=== PATIENT | male | born 1940 | race Caucasian/White ===

== ENCOUNTER 2021-04-25 11:52 | Inpatient (IN) | payer MEDICARE, OTHER ==
[~2021-04-25] VITALS: Ht 167.6 cm; Wt 111.0 kg
[~2021-04-25 11:52] MED LIST: AMLO10TA13 PO; ASPI-1265 PO; COU4T PO; ENOX40SY7 SQ; FURO40TA4 PO; LISI20TA28 PO; METO-477 PO; POTA-208 PO; PRAV40TA3 PO; PROP150T2 PO
[2021-04-25 12:52] LABS: ABG HCO3 31.8 mmol/L (22.0-26.0); ABG PO2 (T) 78.9 mmHg (75.0-100.0); ALLEN'S TEST POSITIVE; FCOHb 1.1 % (0.0-3.9); FLOW 1 L/min; FMetHb 0.2 % (0.0-1.5); FO2Hb 92.8 % (94-97); PATIENT TEMPERATURE 36.6; TOTAL HEMOGLOBIN 12.8 G/dl (14.0-18.0)
[2021-04-25 14:21] LABS: BASOPHILS % (AUTO) 0.5 % (0-1); EOSINOPHILS % (AUTO) 0.5 % (0-6); HEMATOCRIT 41.8 % (42.0-52.0); HEMOGLOBIN 13.5 g/dl (14.0-17.9); LYMPHOCYTES # (AUTO) 0.6 X10'3 (1.1-4.8); LYMPHOCYTES % (AUTO) 9.5 % (21-51); MEAN CORPUSCULAR HEMOGLOBIN 30.3 PG (27.0-31.0); MEAN CORPUSCULAR HGB CONC 32.4 g/dL (33.0-36.5); MEAN CORPUSCULAR VOLUME 93.7 FL (78-98); MEAN PLATELET VOLUME 7.8 FL (7.4-10.4); MONOCYTES # (AUTO) 0.7 X10'3 (0-0.9); MONOCYTES % (AUTO) 11.1 % (2-12); NEUTROPHILS # (AUTO) 5.1 X10'3 (1.8-7.7); NEUTROPHILS % (AUTO) 78.4 % (42-75); PLATELET COUNT 117 X10'3 (140-440); RED BLOOD COUNT 4.46 X10'6 (4.70-6.10); RED CELL DISTRIBUTION WIDTH 16.5 % (11.5-14.5); WHITE BLOOD COUNT 6.5 X10'3 (4.5-11.0)
[2021-04-25 14:46] LABS: ALANINE AMINOTRANSFERASE 21 U/L (12-78); ALBUMIN 3.2 G/DL (3.4-5.0); ALBUMIN/GLOBULIN RATIO 0.8 (1.1-1.5); ALKALINE PHOSPHATASE 102 IU/L (46-116); ANION GAP 4 (8-16); ASPARTATE AMINO TRANSFERASE 21 U/L (10-37); BILIRUBIN,TOTAL 1.5 MG/DL (0.1-1.0); BLOOD UREA NITROGEN 34 MG/DL (7-18); BUN/CREATININE RATIO 22.4 (5.4-32.0); CALCIUM 9.7 MG/DL (8.5-10.1); CHLORIDE 107 MMOL/L (99-107); CREATININE 1.52 MG/DL (0.60-1.10); GLUCOSE 88 MG/DL (70-104); POTASSIUM 4.3 MMOL/L (3.5-5.1); SODIUM 146 MMOL/L (135-145); TOTAL CARBON DIOXIDE 34.7 MMOL/L (24-32); TOTAL PROTEIN 7.2 G/DL (6.4-8.2); eGFR 44 ML/MIN
[2021-04-25 14:49] LABS: TROPONIN I 0.08 NG/ML (0.0-0.05)
[2021-04-25] MEDS ORDERED: LIDOcaine 2% 10ml TOPICAL JELLY (Urojet) MM ONE (16:10)
[2021-04-25 16:43] LABS: URINE AMPHETAMINE SCREEN NEGATIVE (Neg); URINE BARBITUATE SCREEN NEGATIVE (Neg); URINE BENZODIAZEPINES SCREEN NEGATIVE (Neg); URINE CANNABINOID SCREEN NEGATIVE (Neg); URINE COCAINE SCREEN NEGATIVE (Neg); URINE METHADONE SCREEN NEGATIVE (Neg); URINE OPIATE SCREEN NEGATIVE (Neg); URINE PHENCYCLIDINE SCREEN NEGATIVE (Neg)
[2021-04-25 17:20] LABS: CLARITY,URINE CLEAR (Clear); COLOR,URINE YELLOW (Yellow); GLUCOSE, URINE NEGATIVE (Neg); KETONES,URINE NEGATIVE (Neg); PROTEIN,URINE 30 mg/dl (Neg); UA COLLECTION TYPE OTHER
[2021-04-25 17:21] LABS: LEUKOCYTE ESTERASE ,URINE NEGATIVE (Neg); NITRITES, URINE NEGATIVE (Neg); OCCULT BLOOD,URINE MODERATE (Neg); UROBILINOGEN,URINE 0.2 E.U/dL (0.2-1.0)
[2021-04-25 17:24] LABS: BACTERIA,URINE NONE SEEN /HPF (Neg); WBC,URINE 0-4 /HPF (0-4)
[2021-04-25 17:25] LABS: SQUAMOUS EPITHELIAL CELL,UR FEW /LPF (FEW); TRANSITIONAL EPI CELLS,URINE FEW /HPF
[2021-04-25] MEDS ORDERED: morphine 2 MG/ML inj. syringe IV PRN (18:20)
[2021-04-25] MEDS ORDERED: ipratropium/albuterol 3ml nebule NEB PRN (18:20)
[2021-04-25] MEDS ORDERED: magnesium hydroxide 30ml (MOM) UD suspension PO PRN (18:20)
[2021-04-25] MEDS ORDERED: HYDROcodone/acetaminophen 10/325mg tab PO PRN (18:20)
[2021-04-25] MEDS ORDERED: magnesium 2GM in 50ml NS 50 ML IV PRN (18:20)
[2021-04-25] MEDS ORDERED: magnesium 4gm in 100ml NS 100 ML IV PRN (18:20)
[2021-04-25] MEDS ORDERED: acetaminophen 650mg rectal suppository RC PRN (18:20)
[2021-04-25] MEDS ORDERED: potassium Cl 20 mEq SR tablet PO PRN ×2 (18:20)
[2021-04-25] MEDS ORDERED: magnesium Cl slow-release 64mg tablet PO PRN (18:20)
[2021-04-25] MEDS ORDERED: PERFLUTREN PROTEIN-A MICROSPHR (Optison) 0.22 MG/ML 3ML VIAL IV ONE (18:20)
[2021-04-25] MEDS ORDERED: ondansetron/PF 4mg/2ml inj IV PRN (18:20)
[2021-04-25] MEDS ORDERED: acetaminophen 325mg tablet PO PRN ×2 (18:20)
[2021-04-25] MEDS ORDERED: HYDROcodone/acetaminophen 5mg/325mg tablet PO PRN (18:20)
[2021-04-25] MEDS ORDERED: normal saline 1000ml 1,000 ML IV SCH (18:20)
[2021-04-25] MEDS ORDERED: mag hydrox/Alum hydrox/simeth 30ml oral suspension PO PRN (18:20)
[2021-04-25] MEDS ORDERED: diphenhydrAMINE 25mg capsule PO PRN (18:20)
[2021-04-25] MEDS ORDERED: potassium Cl 40MEQ/1/2NS 520ml 520 ML IV PRN ×2 (18:20)
--- NOTE | 2021-04-25 18:48 | NUR ---
ASSUMED CARE OF PT. PT ALTERED SINCE LAST HR PER PRVIOUS NURSE. I RECIEVED A VERBAL ORDER FROM DR Carr FOR 2MG ATIVAN IM FOR PT. PT RIPPING LINES, TAKING HIS NC OFF, YELLING, CONFUSED TO HIS OWN AGE. DR VELÁZQUEZ WANTS PT ON BIPAP, PT UNABLE TO EVEN TOLERATE NC AT PRESENT. CALLED DR VELÁZQUEZ. DR VELÁZQUEZ AWARE.
[2021-04-25] MEDS ORDERED: LORazepam 2 mg/ml vial IM ONE (18:50)
[2021-04-25 18:57] LABS: HEMOGLOBIN A1C 5.5 % (4.5-6.2)
[2021-04-25] MEDS: ipratropium/albuterol 3ml nebule NEB SCH ×2 (19:00→23:50)
--- NOTE | 2021-04-25 19:10 | NUR ---
PT MEDICATED. TWO RN AT BEDSIDE HELPING PT GET SETTLED BACK ON BED AND EXPERIMENTAL ASSEMBLER.
[2021-04-25 19:27] LABS: ETHANOL < 0.010 GM/DL (0.0-0.010)
[2021-04-25] MEDS ORDERED: ATOR40TA71 PO (19:28)
[2021-04-25] MEDS ORDERED: POTA-205 PO (19:28)
[2021-04-25] MEDS: CefTRIAXone/D5W-Rocephin 1gm 50 ML IV SCH (19:51)
--- NOTE | 2021-04-25 19:52 | NUR ---
MALDONADO PLACED, NC O2 BEING GIVEN BY MOUTH RUNNING AT 2 LPM, NEW LINE PLACED ON RIGHT AC, PT ON OIL AGENT, LABS TAKES INCLUDING BLOOD CULTURES, ABX STARTED
[2021-04-25 19:59] LABS: ABG HCO3 32.6 mmol/L (22.0-26.0); ABG OXYGEN SATURATION 98.6 % (94-97); ABG PCO2 (T) 69.3 mmHg (35.0-48.0); FCOHb 1.3 % (0.0-3.9); FLOW 2 L/min; FMetHb 0.2 % (0.0-1.5); FO2Hb 97.1 % (94-97); PATIENT TEMPERATURE 36.6; TOTAL HEMOGLOBIN 12.5 G/dl (14.0-18.0)
[2021-04-25] MEDS: furosemide 10 MG/1 ML 10ml inj IV SCH (20:00)
--- NOTE | 2021-04-25 20:00 | NUR ---
PT RESTING COMFORTABLY. RT PAGED FOR BIPAP
[2021-04-25 20:03] LABS: URINE AMPHETAMINE SCREEN NEGATIVE (Neg); URINE BARBITUATE SCREEN NEGATIVE (Neg); URINE BENZODIAZEPINES SCREEN NEGATIVE (Neg); URINE CANNABINOID SCREEN NEGATIVE (Neg); URINE COCAINE SCREEN NEGATIVE (Neg); URINE METHADONE SCREEN NEGATIVE (Neg); URINE OPIATE SCREEN NEGATIVE (Neg); URINE PHENCYCLIDINE SCREEN NEGATIVE (Neg)
[2021-04-25 20:11] LABS: COLOR,URINE YELLOW (Yellow); UA COLLECTION TYPE FOLEY CATH
[2021-04-25 20:12] LABS: CLARITY,URINE SLIGHTLY CLOUDY (Clear); GLUCOSE, URINE NEGATIVE (Neg); KETONES,URINE NEGATIVE (Neg); LEUKOCYTE ESTERASE ,URINE NEGATIVE (Neg); NITRITES, URINE NEGATIVE (Neg); OCCULT BLOOD,URINE MODERATE (Neg); PROTEIN,URINE TRACE mg/dl (Neg); UROBILINOGEN,URINE 0.2 E.U/dL (0.2-1.0)
--- NOTE | 2021-04-25 20:15 | NUR ---
RT AT BEDSIDE TAKING NEW ABG AND SETTING BIPAP
[2021-04-25 20:21] LABS: SQUAMOUS EPITHELIAL CELL,UR FEW /LPF (FEW)
[2021-04-25 20:22] LABS: BACTERIA,URINE FEW /HPF (Neg); HYALINE CASTS 0-3 /LPF (NEGATIVE); MUCUS STRANDS FEW /LPF (Neg); RBC,URINE 20-50 /HPF (0-2)
[2021-04-25] MEDS: docusate sod 100mg capsule PO SCH (21:15)
--- NOTE | 2021-04-25 21:15 | NUR ---
RT AT BEDSIDE MODIFYING PT'S BIPAP SETTINGS AFTER I PAGED FOR DESATURATION
[2021-04-25] MEDS: K and/or MAG REPLACEMENT MC SCH (21:20)
[2021-04-25] MEDS: heparin, porcine 5000 units/ml vial SQ SCH (21:35)
[2021-04-25] MEDS ORDERED: PERFLUTREN PROTEIN-A MICROSPHR (Optison) 0.22 MG/ML 3ML VIAL IV PRN (21:45)
--- NOTE | 2021-04-25 23:38 | NUR ---
Kady melendrez in EDM - 04/25/21 at 2339 by [email or web address] 2014 RT AT BEDSIDE TAKING ABG AND PLACING PT ON BIPAP
--- NOTE | 2021-04-25 23:45 | NUR ---
TOOK NEW EKG D/T PT'S YEAST CULTURE DEVELOPER SHOWING WIDE COMPLEXES. DR JOHNSON REVIEWED EKG. NO NEW NSTEMI. ADVICED TO KEEP AN EYE OUT FOR PT'S MAGNESIUM GIVEN PT'S PROLONGED QTC
--- NOTE | 2021-04-26 | NUR ---
RT AT BEDSIDE GIVING PT NEB TREATMENT
--- NOTE | 2021-04-26 00:58 | NUR ---
PT RESTING COMFORTABLY, PT TOLERATING BIPAP WELL
--- NOTE | 2021-04-26 02:00 | NUR ---
PT TOOK BIPAP OUT AND STARTED RIPPING OUT LAB MANAGER LEADS OFF. HE ALSO ATTEMPTED TO REMOVE MALDONADO. TALKED TO PAYROLL CONSULTANT WHO PAGED FOR HOSPITALIST I REMAINED NEXT TO PT. PT PLACED ON SOFT RESTRAINTS WITH HELP OF TECH. PT TACHYCARDIC.
[2021-04-26] MEDS ORDERED: LORazepam 2 mg/ml vial IV ONE (02:05)
--- NOTE | 2021-04-26 02:20 | NUR ---
DR SANCHEZ CAME TO EVALUATE PT. I EXPLAINED MY CONCERN OF PT GOING TO INTO RHABDO HE WAS TRYING TO PULL OFF HIS SOFT RESTRAINTS IN AGITATION. I ALSO EXPLAINED THAT ALTHOUGH MEDICATIONS NEED TO BE GIVEN TO CALM PT DOWN, I AM CONCERNED OF PT'S PROLONGED QTC SEEN ON EKG TAKEN AT 2344 ON 04/25. DR SANCHEZ REVIEWED PT'S NEWEST EKG AND PUT IN ORDER FOR RT PAGE, NEW ABG'S, AND 1 MG OF ATIVAN TO BE GIVEN IV.
--- NOTE | 2021-04-26 02:37 | NUR ---
PT IS NOW MEDICATED. RT WAS AT BEDSIDE AND STARTED PT ON 1 LPM NC. O2 SATURATION AT 92%. ABG'S WERE ALSO TAKEN. BIPAP IS AT STANDBY IF NEEDED LATER ON TONIGHT. PT IS NOW SLEEPING COMFORTABLY. WILL MONITOR PT CAREFULLY. PT BACK ON CARDIAC LEADS.
[2021-04-26 02:38] LABS: ABG BASE EXCESS 8.2 mmol/L (-2.0-2.0); ABG HCO3 35.8 mmol/L (22.0-26.0); ABG OXYGEN SATURATION 91.6 % (94-97); ABG PCO2 (T) 62.4 mmHg (35.0-48.0); FCOHb 1.6 % (0.0-3.9); FLOW 1 L/min; FMetHb 0.1 % (0.0-1.5); PATIENT TEMPERATURE 36.7; TOTAL HEMOGLOBIN 13.7 G/dl (14.0-18.0)
--- NOTE | 2021-04-26 02:40 | NUR ---
RT BACK AT BEDSIDE WITH NEW ABG RESULTS. RESULTS SHOW IMPROVEMENT COMPARED TO FIRST ABG RESULTS; HOWEVER, RT CONCERNED THAT WITH ATIVAN MEDICATION, PT MAY BEGIN TO RETAIN CO2. RT WILL ATTEMPT TO PUT PT BACK ON BIPAP IF PT TOLERATES IT WELL NOW. RIGHT HAND SOFT RESTRAINT HAS BEEN TAKEN OFF
--- NOTE | 2021-04-26 02:45 | NUR ---
PT TOLERATING BIPAP WELL NOW AND SLEEPING COMFORTABLY. PT CONTINUES TO BE CAREFULLY MONITORED.
--- NOTE | 2021-04-26 03:00 | NUR ---
PT RESTING. MONITORING PT CAREFULLY
--- NOTE | 2021-04-26 03:18 | NUR ---
PT NO LONGER TOLERATING BIPAP. BIPAP ON STANDBY. WILL MONITOR PT'S BREATHING. Addendum: 04/26/21 at 0318 by [email or web address] PT TOOK BIPAP OFF. I PUT BIPAP ON STANDBY, WILL CONTINUE TO MONITOR PT'S BREATHING
--- NOTE | 2021-04-26 03:23 | NUR ---
PT PUT ON 1 LPM NC
[2021-04-26 03:37] LABS: BASOPHILS % (AUTO) 0.6 % (0-1); EOSINOPHILS # (AUTO) 0.1 X10'3 (0-0.9); HEMATOCRIT 37.2 % (42.0-52.0); HEMOGLOBIN 12.2 g/dl (14.0-17.9); LYMPHOCYTES # (AUTO) 0.6 X10'3 (1.1-4.8); LYMPHOCYTES % (AUTO) 11.5 % (21-51); MEAN CORPUSCULAR HEMOGLOBIN 30.6 PG (27.0-31.0); MEAN CORPUSCULAR HGB CONC 32.7 g/dL (33.0-36.5); MEAN CORPUSCULAR VOLUME 93.6 FL (78-98); MEAN PLATELET VOLUME 7.8 FL (7.4-10.4); MONOCYTES # (AUTO) 0.8 X10'3 (0-0.9); MONOCYTES % (AUTO) 13.8 % (2-12); NEUTROPHILS # (AUTO) 4.1 X10'3 (1.8-7.7); NEUTROPHILS % (AUTO) 73.1 % (42-75); PLATELET COUNT 105 X10'3 (140-440); RED BLOOD COUNT 3.98 X10'6 (4.70-6.10); RED CELL DISTRIBUTION WIDTH 16.4 % (11.5-14.5); WHITE BLOOD COUNT 5.6 X10'3 (4.5-11.0)
[2021-04-26 03:54] LABS: D-DIMER 2.41 MG/L FEU (0-0.50)
--- NOTE | 2021-04-26 03:59 | NUR ---
RT AT BEDSIDE TO GIVE PT BREATHING TX
[2021-04-26] MEDS: ipratropium/albuterol 3ml nebule NEB SCH ×2 (04:00→07:09)
--- NOTE | 2021-04-26 04:21 | NUR ---
PT SLEEPING COMFORTABLY WITH 1L NC, SATTING AT 92%, SECOND SOFT HAND RESTRAINT HAS BEEN TAKEN OFF.
--- NOTE | 2021-04-26 05:07 | NUR ---
Received report from RADHA Ibrahim. Awaiting arrival to the floor.
[2021-04-26 05:45] VITALS: BP 142/58
--- NOTE | 2021-04-26 05:45 | NUR ---
Patient arrived to the floor via gurney accompanied by ADMINISTRATIVE SERVICES OFFICER and EMT. Placed in room 3016A. Patient asleep on 1L NC, in no apparent distress. Call light in reach. Will continue to monitor.
[2021-04-26 06:00] VITALS: BP 95/50
--- NOTE | 2021-04-26 06:36 | NUR ---
Problems reprioritized. Patient report given, questions answered & plan of care reviewed with RADHA Emanuel.
[2021-04-26 07:51] LABS: ALANINE AMINOTRANSFERASE 16 U/L (12-78); ALBUMIN 2.6 G/DL (3.4-5.0); ALBUMIN/GLOBULIN RATIO 0.7 (1.1-1.5); ALKALINE PHOSPHATASE 81 IU/L (46-116); ANION GAP 0 (8-16); ASPARTATE AMINO TRANSFERASE 22 U/L (10-37); BILIRUBIN,TOTAL 1.1 MG/DL (0.1-1.0); BLOOD UREA NITROGEN 33 MG/DL (7-18); CALCIUM 8.7 MG/DL (8.5-10.1); CHLORIDE 111 MMOL/L (99-107); GLUCOSE 75 MG/DL (70-104); POTASSIUM 3.9 MMOL/L (3.5-5.1); SODIUM 150 MMOL/L (135-145); TOTAL CARBON DIOXIDE 38.9 MMOL/L (24-32); TOTAL PROTEIN 6.4 G/DL (6.4-8.2); eGFR 45 ML/MIN
[2021-04-26 07:56] LABS: C-REACTIVE PROTEIN 0.54 MG/DL (0.0-0.5); CHOL/HDL RATIO 2.7 (0.00-4.99); CHOLESTEROL 120 MG/DL (0-200); HDL CHOLESTEROL 44 MG/DL (35-60); LACTATE DEHYDROGENASE 219 U/L (85-227); LDL CHOLESTEROL 58 MG/DL (50-100); MAGNESIUM 2.6 MG/DL (1.5-2.4); PHOSPHORUS 4.5 MG/DL (2.3-4.5); TRIGLYCERIDES 88 MG/DL (20-135)
[2021-04-26] MEDS: K and/or MAG REPLACEMENT MC SCH ×2 (08:00→20:00)
[2021-04-26] MEDS: docusate sod 100mg capsule PO SCH ×2 (08:00→19:59)
[2021-04-26] MEDS: CefTRIAXone/D5W-Rocephin 1gm 50 ML IV SCH (08:14)
[2021-04-26] MEDS: azithromycin/NS 500mg/250ml 250 ML IV SCH (08:14)
[2021-04-26] MEDS: heparin, porcine 5000 units/ml vial SQ SCH ×2 (08:37→19:53)
[2021-04-26] MEDS: furosemide 10 MG/1 ML 10ml inj IV SCH ×2 (08:38→19:51)
[2021-04-26] MEDS ORDERED: ipratropium/albuterol 3ml nebule NEB PRN (08:45)
[2021-04-26] MEDS ORDERED: methylPREDNISolone sod succ 125mg/2ml vial IV ONE (09:05)
--- NOTE | 2021-04-26 10:00 | NUR ---
and son at the bedside with Dr. Carcamo and RN. and son state they would like to have the patient be DNR after having been fully educated
[2021-04-26 11:00] VITALS: BP 115/64
[2021-04-26 11:01] LABS: ABG BASE EXCESS 5.6 mmol/L (-2.0-2.0); ABG HCO3 33.4 mmol/L (22.0-26.0); ABG OXYGEN SATURATION 92.7 % (94-97); ABG PO2 (T) 62.8 mmHg (75.0-100.0); ALLEN'S TEST POSITIVE; FCOHb 1.2 % (0.0-3.9); FLOW 2 L/min; FMetHb 0.3 % (0.0-1.5); FO2Hb 91.3 % (94-97); PATIENT TEMPERATURE 35.7; TOTAL HEMOGLOBIN 13.7 G/dl (14.0-18.0)
--- NOTE | 2021-04-26 12:03 | NUR ---
PAGER ID: [phone] MESSAGE: [id number] Cecilia- Blood glucose 58. Patient NPO. Jenae 3048
--- NOTE | 2021-04-26 12:19 | NUR ---
PAGER ID: [phone] MESSAGE: [id number] Manuel Brooks- Blood glucose 53. No glucose orders. Jenae 2024
--- NOTE | 2021-04-26 12:58 | NUR ---
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 No wound care consult in EMR at this time. Per physical assessment pt A/O x 1 and confused, s/p BSS today with ST recs NPO as pt with poor swallow d/t cognitive level. Noted pt with two low blood sugars of 53 mg/dL and 57 mg/dL, currently not receiving any dextrose though RN has informed MD per hydrological technical officer. Recommend diet advancement to regular as medically indicated IF able to tolerate PO intake pending f/u BSS with ST given geriatric age, low blood sugars with A1c 5.5%, and lipid panel WNL. Will continue to follow and make recommendations as appropriate. Addendum: 04/26/21 at [address] Amended: Links added.
--- NOTE | 2021-04-26 14:14 | NUR ---
PAGER ID: [phone] MESSAGE: [id number]- positive blood culture. Continue Bipap? Jenae [id number]
[2021-04-26] MEDS: methylPREDNISolone sod succ 125mg/2ml vial IV SCH ×2 (14:40→20:00)
[2021-04-26] MEDS: LORazepam 2 mg/ml vial IV PRN (14:42)
[2021-04-26 15:00] VITALS: BP 125/60
[2021-04-26] MEDS ORDERED: dextrose 5%-water 1,000 ML IV SCH (15:30)
[2021-04-26] MEDS ORDERED: piperacillin/tazo 3.375gm/50ml 50 ML IV SCH (15:30)
--- NOTE | 2021-04-26 15:30 | NUR ---
PAGER ID: [phone] MESSAGE: [id number] Manuel Brooks- will not keep bipap on. Ativan was given. Jenae 1311
[2021-04-26] MEDS ORDERED: haloperidol lactate 5mg/ml inj IM PRN (15:35)
--- NOTE | 2021-04-26 15:35 | NUR ---
Dr. Carcamo called back and orders placed to give Haldol 5mg IM to see if he will keep bipap on and to have a sitter in the room when the family leaves. Regarding positive blood cultures Dr. Carcamo states to DC Rocephin. start Zosyn 3.375 and Vancomycin Regarding low blood glucose, order placed for D5W 50ml/hr and DC NS 20ml/hr
[2021-04-26] MEDS ORDERED: vancomycin/NS 1 GM ADD-VANTAGE 250 ML IV SCH (16:00)
[2021-04-26 18:00] VITALS: BP 125/60
--- NOTE | 2021-04-26 18:11 | NUR ---
Patient in room PCU 3016. I have received report from JEREMÍAS GARCIA and had the opportunity to ask questions and assume patient care.
--- NOTE | 2021-04-26 18:25 | NUR ---
Problems reprioritized. Patient report given, questions answered & plan of care reviewed with Laurie GARCIA.
[2021-04-26] MEDS: piperacillin/tazo 3.375gm/50ml 50 ML IV SCH ×2 (19:41→23:41)
[2021-04-26] MEDS ORDERED: warfarin 4mg tablet PO ONE (21:00)
[2021-04-26] MEDS: nystatin 15 GM powder TP SCH (21:51)
[2021-04-26 22:00] VITALS: BP 125/67
--- NOTE | 2021-04-26 22:52 | NUR ---
PAGER ID: [phone] MESSAGE: [id number] paz-patient needs coumadin dose tonight, INR 2.9-patient not able to swallow per Speech Eval-do we need lovenox?please call Laurie [phone]
[2021-04-26] MEDS ORDERED: enoxaparin 100mg/ml syringe SUBCUT ONE (23:00)
[2021-04-27] VITALS (13 sets, daily range): BP systolic 109–169; BP diastolic 25–105
[2021-04-27] MEDS: methylPREDNISolone sod succ 125mg/2ml vial IV SCH ×2 (01:25→08:08)
[2021-04-27] MEDS: LORazepam 2 mg/ml vial IV PRN ×4 (01:25→15:14)
--- NOTE | 2021-04-27 01:36 | NUR ---
promotional table spacer PAGER ID: [phone] MESSAGE: [id number]-please call back for Manuel Brooks-also in afib rvr now 130's to 150's, Laurie Solomon25
[2021-04-27] MEDS ORDERED: diltiazem-NS 100mg/100ml 100 ML IV SCH (01:45)
--- NOTE | 2021-04-27 01:49 | NUR ---
3016A-FIFI BELTRAN-HR IN 'S, CONVERTED TO SR-DO YOU STILL WANT ME TO START CARDIZEM? TRISH, ARTI
[2021-04-27 02:11] LABS: ABG BASE EXCESS 8.7 mmol/L (-2.0-2.0); ABG HCO3 34.8 mmol/L (22.0-26.0); ABG OXYGEN SATURATION 94.5 % (94-97); ABG PCO2 (T) 54.7 mmHg (35.0-48.0); ABG PO2 (T) 72.4 mmHg (75.0-100.0); ALLEN'S TEST POSITIVE; FCOHb 1.5 % (0.0-3.9); FO2Hb 93.1 % (94-97); PATIENT TEMPERATURE 37.2; RESPIRATORY RATE 8 b/min; TOTAL HEMOGLOBIN 12.9 G/dl (14.0-18.0)
--- NOTE | 2021-04-27 03:16 | NUR ---
PAGER ID: [phone] MESSAGE: NEED LOPRESSOR IV ON DEVIN FIFI0-HR IN 180/190'S-CAN;T CALL RAPID...ICU IN CODE . ARTI 2551
--- NOTE | 2021-04-27 03:16 | NUR ---
OLIVA SCALES STARTED, CALLED CHARGE AIR POLLUTION INSPECTOR, SUGGESTED LOPRESSOR IV, PAGED MAGU FOR FURTHER ORDERS. PATIENT IN RAPID AFIB RVR, HR IN 180'S/190'S,
[2021-04-27] MEDS ORDERED: metoprolol tartrate 1mg/ml inj IV ONE (03:20)
--- NOTE | 2021-04-27 03:39 | NUR ---
PATIENT RESUMEDRAPID AFIB, 180S AND 190'S, STARTED CARDIZEM GTT, PUSHED 10 MG IV METOPROLOL BLOOD PRESSURE 160/105- PATIENT NOW IN SR, 90'S, BP IS 122/71-MSP 83.
--- NOTE | 2021-04-27 06:11 | NUR ---
Problems reprioritized. Patient report given, questions answered & plan of care reviewed with JEREMÍAS GARCIA.
[2021-04-27 07:31] LABS: BASOPHILS % (AUTO) 0.1 % (0-1); EOSINOPHILS % (AUTO) 0 % (0-6); HEMATOCRIT 38.1 % (42.0-52.0); HEMOGLOBIN 12.5 g/dl (14.0-17.9); LYMPHOCYTES # (AUTO) 0.3 X10'3 (1.1-4.8); LYMPHOCYTES % (AUTO) 5.1 % (21-51); MEAN CORPUSCULAR HEMOGLOBIN 30.6 PG (27.0-31.0); MEAN CORPUSCULAR HGB CONC 32.8 g/dL (33.0-36.5); MEAN CORPUSCULAR VOLUME 93.3 FL (78-98); MEAN PLATELET VOLUME 8.1 FL (7.4-10.4); MONOCYTES # (AUTO) 0.1 X10'3 (0-0.9); MONOCYTES % (AUTO) 1.8 % (2-12); NEUTROPHILS # (AUTO) 5.3 X10'3 (1.8-7.7); PLATELET COUNT 113 X10'3 (140-440); RED BLOOD COUNT 4.09 X10'6 (4.70-6.10); RED CELL DISTRIBUTION WIDTH 16.2 % (11.5-14.5); WHITE BLOOD COUNT 5.7 X10'3 (4.5-11.0)
[2021-04-27 07:43] LABS: D-DIMER 1.22 MG/L FEU (0-0.50)
[2021-04-27 07:51] LABS: ALANINE AMINOTRANSFERASE 18 U/L (12-78); ALBUMIN 2.7 G/DL (3.4-5.0); ALBUMIN/GLOBULIN RATIO 0.7 (1.1-1.5); ALKALINE PHOSPHATASE 83 IU/L (46-116); ANION GAP 6 (8-16); ASPARTATE AMINO TRANSFERASE 25 U/L (10-37); BILIRUBIN,TOTAL 0.8 MG/DL (0.1-1.0); BLOOD UREA NITROGEN 45 MG/DL (7-18); BUN/CREATININE RATIO 23.3 (5.4-32.0); C-REACTIVE PROTEIN 0.84 MG/DL (0.0-0.5); CALCIUM 9.2 MG/DL (8.5-10.1); CHLORIDE 110 MMOL/L (99-107); CREATININE 1.93 MG/DL (0.60-1.10); GLUCOSE 102 MG/DL (70-104); LACTATE DEHYDROGENASE 224 U/L (85-227); MAGNESIUM 2.7 MG/DL (1.5-2.4); PHOSPHORUS 4.3 MG/DL (2.3-4.5); POTASSIUM 4.2 MMOL/L (3.5-5.1); SODIUM 149 MMOL/L (135-145); TOTAL CARBON DIOXIDE 32.7 MMOL/L (24-32); TOTAL PROTEIN 6.4 G/DL (6.4-8.2); eGFR 34 ML/MIN
[2021-04-27] MEDS: nystatin 15 GM powder TP SCH ×3 (08:00→21:39)
[2021-04-27] MEDS: docusate sod 100mg capsule PO SCH (08:00)
[2021-04-27] MEDS ORDERED: atorvastatin 20mg tablet PO SCH (08:00)
[2021-04-27] MEDS ORDERED: metoprolol tartrate 50mg tablet PO SCH (08:00)
[2021-04-27] MEDS ORDERED: lisinopril 20mg tablet PO SCH (08:00)
[2021-04-27] MEDS ORDERED: aspirin 81mg tab.chew PO SCH (08:00)
--- NOTE | 2021-04-27 08:03 | NUR ---
Critical lab paged to Dr. Carcamo PAGER ID: [phone] MESSAGE: [id number] Synder- PT 41.9 / INR 4.3. Jenae 3144
[2021-04-27] MEDS: azithromycin/NS 500mg/250ml 250 ML IV SCH (08:08)
[2021-04-27] MEDS: piperacillin/tazo 3.375gm/50ml 50 ML IV SCH (08:08)
[2021-04-27] MEDS: furosemide 10 MG/1 ML 10ml inj IV SCH (08:08)
[2021-04-27] MEDS: morphine 2 MG/ML inj. syringe IV PRN ×3 (13:36→23:32)
[2021-04-27] MEDS ORDERED: morphine 10mg/0.5ml (conc. morphine) oral syringe PO PRN (13:50)
[2021-04-27] MEDS ORDERED: morphine 2 MG/ML inj. syringe IV PRN (13:50)
[2021-04-27] MEDS ORDERED: vancomycin inj. 750 MG in normal saline 250ml IV soln 250 ML IV SCH (16:00)
--- NOTE | 2021-04-27 18:19 | NUR ---
Problems reprioritized. Patient report given, questions answered & plan of care reviewed with Sarah GARCIA.
--- NOTE | 2021-04-28 01:52 | NUR ---
reviewed and edited SRN assessment.
[2021-04-28] MEDS: morphine 2 MG/ML inj. syringe IV PRN ×2 (03:23→08:43)
[2021-04-28] MEDS: LORazepam 2 mg/ml vial IV PRN ×4 (04:25→21:25)
[2021-04-28 06:00] VITALS: BP 137/72
--- NOTE | 2021-04-28 06:38 | NUR ---
Problems reprioritized. Patient report given, questions answered & plan of care reviewed with
--- NOTE | 2021-04-28 07:23 | NUR ---
Patient in room PCU 3020. I have received report from RADHA SHAH and had the opportunity to ask questions and assume patient care.
[2021-04-28] MEDS: nystatin 15 GM powder TP SCH ×3 (08:48→21:10)
[2021-04-28] MEDS: morphine 2 MG/ML inj. syringe IV SCH ×2 (16:23→20:00)
[2021-04-28 18:00] VITALS: BP 108/69
--- NOTE | 2021-04-28 18:29 | NUR ---
TOOK IV OUT DUE TO BLEEDING Addendum: 04/28/21 at 1829 by Halima Hobbs RN Amended: Links added.
--- NOTE | 2021-04-28 18:30 | NUR ---
I RECIEVED REPORT AND HAVE ASSUMED CARE OF THE PATIENT. PATIENT IS RESTING IN BED WITH FAMILY AT BEDSIDE.
--- NOTE | 2021-04-28 18:59 | NUR ---
Problems reprioritized. Patient report given, questions answered & plan of care reviewed with RADHA PETERSEN.
[2021-04-29] MEDS: morphine 2 MG/ML inj. syringe IV PRN ×4 (00:36→11:18)
[2021-04-29] MEDS: LORazepam 2 mg/ml vial IV PRN ×4 (01:46→09:06)
[2021-04-29 07:00] VITALS: BP 90/54
--- NOTE | 2021-04-29 07:04 | NUR ---
Patient in room PCU 3020. I have received report from Florinda GARCIA and had the opportunity to ask questions and assume patient care.
[2021-04-29] MEDS: morphine 2 MG/ML inj. syringe IV SCH (07:48)
[2021-04-29] MEDS: nystatin 15 GM powder TP SCH ×2 (08:00→13:00)
[2021-04-29] MEDS ORDERED: morphine 2 MG/ML inj. syringe IV SCH (14:00)
--- NOTE | 2021-04-29 14:34 | NUR ---
Pt went asystole at 1345, family was at bedside, made aware, donor netqwork called, [facility] in [place] was chosen from family and called.
[2021-04-29] MEDS ORDERED: VANCOMYCIN LEVEL IV ONE (15:30)
== END 2021-04-29 16:15 | DRG 871 ==
LOC: ER 11:53 → ED HOLD 18:25 → PCU 3S 04-26 05:55
PROVIDERS: ADMIT Family Medicine; ATTEND Family Medicine
PROC: 5A09357 Assistance with Respiratory Ventilation, Less than 24 Consecutive Hours, Continuous Positive Airway Pressure (ICD-10-PCS; principal; 2021-04-25)
PROC: 5A09357 Assistance with Respiratory Ventilation, Less than 24 Consecutive Hours, Continuous Positive Airway Pressure (ICD-10-PCS; 2021-04-26)
DX: A41.9 Sepsis, unspecified organism (principal); J96.20 Acute and chronic respiratory failure, unspecified whether with hypoxia or hypercapnia; I21.A1 Myocardial infarction type 2; I50.33 Acute on chronic diastolic (congestive) heart failure; R65.21 Severe sepsis with septic shock; I13.0 Hypertensive heart and chronic kidney disease with heart failure and stage 1 through stage 4 chronic kidney disease, or unspecified chronic kidney disease; E87.4 Mixed disorder of acid-base balance; L97.919 Non-pressure chronic ulcer of unspecified part of right lower leg with unspecified severity; L97.929 Non-pressure chronic ulcer of unspecified part of left lower leg with unspecified severity; N17.9 Acute kidney failure, unspecified; E87.0 Hyperosmolality and hypernatremia; I47.1 Supraventricular tachycardia; N18.30 Chronic kidney disease, stage 3 unspecified; D69.6 Thrombocytopenia, unspecified; E78.00 Pure hypercholesterolemia, unspecified; E78.5 Hyperlipidemia, unspecified; F41.9 Anxiety disorder, unspecified; I87.2 Venous insufficiency (chronic) (peripheral); I46.9 Cardiac arrest, cause unspecified; G47.33 Obstructive sleep apnea (adult) (pediatric); Z66 Do not resuscitate; I25.10 Atherosclerotic heart disease of native coronary artery without angina pectoris; I48.91 Unspecified atrial fibrillation; Z20.822 Contact with and (suspected) exposure to COVID-19; Z95.1 Presence of aortocoronary bypass graft; Z51.5 Encounter for palliative care; Z79.01 Long term (current) use of anticoagulants; Z98.84 Bariatric surgery status; Z78.1 Physical restraint status
CPT/HCPCS: 36415; 36600; 70450; 71045; 80053; 80061; 80305; 80320; 81001; 82140; 82803; 82948; 83036; 83605; 83615; 83735; 83880; 84100; 84145; 84484; 85018; 85025; 85379; 85610; 86140; 87040; 87077; 87088; 87186; 87635; 92508; 92616; 93005; 93306; 94640; 94660; 94760; 94799; 99291; C9803; G0378; J0456; J0696; J1630; J1644; J1650; J1940; J2060; J2270; J2543; J2930; J3370; J3490; J7030; J7070